=== PATIENT | female | born 1945 | race Hispanic/Latino ===

== ENCOUNTER 2020-08-10 19:31 | Inpatient (IN) | payer MEDICARE ==
[~2020-08-10] VITALS: Ht 149.9 cm; Wt 61.2 kg
[2020-08-10] MEDS ORDERED: SODIUM CHLORIDE 0.9% 1000ML 1,000 ML IV STA (19:35)
[2020-08-10 20:07] LABS: BASOPHILS % 0.2 % (0.0-1.0); HEMATOCRIT 34.4 % (34.2-44.1); HEMOGLOBIN 12.4 g/dL (12.0-16.0); LYMPHOCYTES # (AUTO) 2.5 (1.0-3.2); LYMPHOCYTES % 21.4 % (18.0-39.1); MEAN CORPUSCULAR HEMOGLOBIN 32.9 pg (28-32); MEAN CORPUSCULAR VOLUME 91.2 fL (81-99); MONOCYTES # (AUTO) 1.2 (0.2-0.8); MONOCYTES % 10.3 % (4.4-11.3); NEUTROPHILS # (AUTO) 7.9 (2.1-6.9); NEUTROPHILS % 67.5 % (38.7-80.0); PLATELET COUNT 288 x10e3/uL (140-360); RED BLOOD COUNT 3.77 x10e6/uL (3.6-5.1); RED CELL DISTRIBUTION WIDTH 13.4 % (11.7-14.4)
[2020-08-10] MEDS ORDERED: ONDANSETRON HCL INJ 2MG/ML 2ML 2 MG/ML VIAL IV STA (20:33)
[2020-08-10 20:37] LABS: ALANINE AMINOTRANSFERASE 865 IU/L (0-55); ALBUMIN 3.2 g/dL (3.5-5.0); ALBUMIN/GLOBULIN RATIO 0.7 (0.8-2.0); ALKALINE PHOSPHATASE 67 IU/L (40-150); ANION GAP 16.7 mmol/L (8-16); BLOOD UREA NITROGEN 48 mg/dL (7-26); BUN/CREATININE RATIO 56 (6-25); CALCIUM 8.3 mg/dL (8.4-10.2); CARBON DIOXIDE 18 mmol/L (22-29); CHLORIDE 101 mmol/L (98-107); CREATINE KINASE 26 IU/L (29-168); CREATININE, SERUM 0.85 mg/dL (0.57-1.11); EST GLOMERULAR FILTRATION RATE > 60 ML/MIN (60-); GLUCOSE 102 mg/dL (74-118); LIPASE 37 U/L (8-78); SODIUM 133 mmol/L (136-145)
[2020-08-10 20:43] LABS: POTASSIUM 2.7 mmol/L (3.5-5.1)
[2020-08-10] MEDS ORDERED: POTASSIUM CHLORIDE 10MEQ/100ML 100 ML IV ONE (21:00)
[2020-08-10] MEDS ORDERED: POTASSIUM CHLORIDE 10MEQ EA PO ONE (21:00)
[2020-08-10] MEDS ORDERED: IOPAMIDOL 370 MG/ML 200 ML INFUS..BTL INJ ONE (21:01)
[2020-08-10] MEDS ORDERED: SODIUM CHLORIDE 0.9% 50ML 50 ML ONE (21:01)
[2020-08-10] MEDS: SODIUM CHLORIDE 0.9% 1000ML 1,000 ML IV SCH (23:50)
[2020-08-10] MEDS: METRONIDAZOLE 500MG/NS 100ML 100 ML IV SCH (23:50)
[2020-08-11] VITALS (9 sets, daily range): BP systolic 121–147; BP diastolic 48–66
[2020-08-11] MEDS ORDERED: DILTIAZEM 24HR120 M1 PO (03:02)
[2020-08-11] MEDS ORDERED: GABAPENTIN300 MG PO (03:02)
[2020-08-11] MEDS ORDERED: VITAMIN D32400 UNIT/ (03:02)
[2020-08-11] MEDS ORDERED: CLOPIDOGREL75 MG PO (03:02)
[2020-08-11] MEDS ORDERED: LOSARTAN POTASS25 MG PO (03:02)
[2020-08-11] MEDS ORDERED: CEVIMELINE HCL30 MG PO (03:02)
[2020-08-11] MEDS ORDERED: FAMOTIDINE20 MG PO (03:02)
[2020-08-11] MEDS ORDERED: SOTALOL80 MG PO (03:02)
[2020-08-11] MEDS ORDERED: VITAMIN B-121000 MCG PO (03:02)
[2020-08-11] MEDS: SODIUM CHLORIDE 0.9% 1000ML 1,000 ML IV SCH ×2 (07:17→16:49)
[2020-08-11 07:39] LABS: BASOPHILS % 0.1 % (0.0-1.0); EOSINOPHILS % 0.1 % (0.0-6.0); HEMATOCRIT 30.6 % (34.2-44.1); HEMOGLOBIN 10.7 g/dL (12.0-16.0); LYMPHOCYTES # (AUTO) 2.2 (1.0-3.2); LYMPHOCYTES % 24.2 % (18.0-39.1); MEAN CORPUSCULAR HEMOGLOBIN 32.6 pg (28-32); MEAN CORPUSCULAR VOLUME 93.3 fL (81-99); MONOCYTES # (AUTO) 0.9 (0.2-0.8); MONOCYTES % 9.7 % (4.4-11.3); NEUTROPHILS % 65.1 % (38.7-80.0); PLATELET COUNT 242 x10e3/uL (140-360); RED BLOOD COUNT 3.28 x10e6/uL (3.6-5.1); RED CELL DISTRIBUTION WIDTH 13.7 % (11.7-14.4)
[2020-08-11 08:06] LABS: ALANINE AMINOTRANSFERASE 646 IU/L (0-55); ALBUMIN 2.6 g/dL (3.5-5.0); ALBUMIN/GLOBULIN RATIO 0.7 (0.8-2.0); ALKALINE PHOSPHATASE 55 IU/L (40-150); ANION GAP 13.7 mmol/L (8-16); BLOOD UREA NITROGEN 29 mg/dL (7-26); BUN/CREATININE RATIO 42 (6-25); CALCIUM 7.4 mg/dL (8.4-10.2); CARBON DIOXIDE 18 mmol/L (22-29); CHLORIDE 106 mmol/L (98-107); CREATININE, SERUM 0.69 mg/dL (0.57-1.11); EST GLOMERULAR FILTRATION RATE > 60 ML/MIN (60-); GLUCOSE 69 mg/dL (74-118); SODIUM 135 mmol/L (136-145)
[2020-08-11 08:34] LABS: POTASSIUM 2.7 mmol/L (3.5-5.1)
[2020-08-11] MEDS ORDERED: POTASSIUM CHLORIDE 20 MEQ TAB CR PO STA (08:44)
[2020-08-11] MEDS: METRONIDAZOLE 500MG/NS 100ML 100 ML IV SCH ×3 (09:11→23:42)
[2020-08-11] MEDS: ONDANSETRON HCL INJ 2MG/ML 2ML 2 MG/ML VIAL IV PRN ×3 (10:41→19:12)
[2020-08-11] MEDS ORDERED: POTASSIUM CHLORIDE 20 MEQ TAB CR PO ONE (11:00)
[2020-08-11] MEDS: CIPROFLOXACIN 400 MG/D5W 200ML 200 ML IV SCH ×2 (11:59→17:00)
[2020-08-11] MEDS ORDERED: MAGNESIUM SULFATE 2GM/50ML 50 ML IV ONE (13:45)
[2020-08-11] MEDS ORDERED: ACETAMINOPHEN 325 MG TAB PO PRN (13:45)
[2020-08-11] MEDS: ENOXAPARIN SOD INJ 40 MG/0.4 ML SYR SC SCH (17:00)
[2020-08-11] MEDS ORDERED: PANTOPRAZOLE 40 MG 10ML VIAL IV STA (22:15)
[2020-08-11] MEDS: LEVOFLOXACIN 500MG/D5W 100ML 100 ML IV SCH (22:49)
[2020-08-11] MEDS: METOCLOPRAMIDE HCL 10 MG/2ML VIAL IV ONE ×2 (22:53→23:23)
[2020-08-11] MEDS ORDERED: BISACODYL 5 MG TAB EC PO ONE (23:20)
[2020-08-11] MEDS: BISACODYL 5 MG TAB EC PO ONE ×2 (23:23→23:59)
[2020-08-11] MEDS ORDERED: CITRATE OF MAGNESIA 300ML BOTTLE PO ONE (23:30)
[2020-08-11] MEDS ORDERED: DICYCLOMINE HCL 10 MG CAP PO STA (23:46)
[2020-08-12] VITALS (7 sets, daily range): BP systolic 89–125; BP diastolic 67–76
[2020-08-12] MEDS: METOCLOPRAMIDE HCL 10 MG/2ML VIAL IV SCH ×4 (00:05→16:15)
[2020-08-12] MEDS: SODIUM CHLORIDE 0.9% 1000ML 1,000 ML IV SCH ×2 (01:39→19:27)
[2020-08-12] MEDS: METRONIDAZOLE 500MG/NS 100ML 100 ML IV SCH ×3 (05:42→21:20)
[2020-08-12] MEDS: DICYCLOMINE HCL 10 MG CAP PO SCH ×3 (05:42→21:20)
[2020-08-12 06:26] LABS: BASOPHILS % 0.1 % (0.0-1.0); EOSINOPHILS % 0.1 % (0.0-6.0); HEMATOCRIT 30.9 % (34.2-44.1); HEMOGLOBIN 11.2 g/dL (12.0-16.0); LYMPHOCYTES # (AUTO) 2.8 (1.0-3.2); LYMPHOCYTES % 20.3 % (18.0-39.1); MEAN CORPUSCULAR HGB CONC 36.2 g/dL (31-35); MEAN CORPUSCULAR VOLUME 93.9 fL (81-99); MONOCYTES # (AUTO) 1.4 (0.2-0.8); MONOCYTES % 9.9 % (4.4-11.3); NEUTROPHILS # (AUTO) 9.4 (2.1-6.9); NEUTROPHILS % 69.1 % (38.7-80.0); PLATELET COUNT 219 x10e3/uL (140-360); RED BLOOD COUNT 3.29 x10e6/uL (3.6-5.1); RED CELL DISTRIBUTION WIDTH 14.2 % (11.7-14.4)
[2020-08-12 06:53] LABS: ALANINE AMINOTRANSFERASE 473 IU/L (0-55); ALBUMIN 2.5 g/dL (3.5-5.0); ALKALINE PHOSPHATASE 59 IU/L (40-150); ANION GAP 13.6 mmol/L (8-16); BILIRUBIN,DIRECT 0.5 mg/dL (0.0-0.5); BLOOD UREA NITROGEN 11 mg/dL (7-26); BUN/CREATININE RATIO 20 (6-25); CALCIUM 7.1 mg/dL (8.4-10.2); CARBON DIOXIDE 14 mmol/L (22-29); CHLORIDE 109 mmol/L (98-107); CREATININE, SERUM 0.56 mg/dL (0.57-1.11); EST GLOMERULAR FILTRATION RATE > 60 ML/MIN (60-); GLUCOSE 85 mg/dL (74-118); POTASSIUM 3.6 mmol/L (3.5-5.1); SODIUM 133 mmol/L (136-145)
[2020-08-12] MEDS ORDERED: CITRATE OF MAGNESIA 300ML BOTTLE PO ONE (07:00)
[2020-08-12 07:14] LABS: % IRON SATURATION 69 % (15-50); IRON 84 ug/dL (50-170); TOTAL IRON BINDING CAPACITY 122 ug/dL (261-478); TRANSFERRIN 87 mg/dL (180-382)
[2020-08-12] MEDS: LEVOFLOXACIN 500MG/D5W 100ML 100 ML IV SCH (08:55)
[2020-08-12] MEDS: PANTOPRAZOLE 40 MG 10ML VIAL IV SCH ×2 (08:55→21:20)
[2020-08-12] MEDS: GABAPENTIN 300 MG CAP PO SCH ×2 (14:41→21:20)
[2020-08-12] MEDS: ENOXAPARIN SOD INJ 40 MG/0.4 ML SYR SC SCH (16:14)
[2020-08-12] MEDS: SOTALOL HCL 80 MG TAB PO SCH (16:14)
[2020-08-13] VITALS: BP 86/64
[2020-08-13] MEDS: METOCLOPRAMIDE HCL 10 MG/2ML VIAL IV SCH ×4 (01:12→17:06)
[2020-08-13 04:00] VITALS: BP 95/65
[2020-08-13 05:13] LABS: BASOPHILS % 0.2 % (0.0-1.0); EOSINOPHILS % 0.2 % (0.0-6.0); HEMOGLOBIN 11.3 g/dL (12.0-16.0); LYMPHOCYTES # (AUTO) 5.3 (1.0-3.2); LYMPHOCYTES % 36.7 % (18.0-39.1); MEAN CORPUSCULAR HEMOGLOBIN 35.1 pg (28-32); MEAN CORPUSCULAR HGB CONC 36.5 g/dL (31-35); MEAN CORPUSCULAR VOLUME 96.3 fL (81-99); MONOCYTES # (AUTO) 1.5 (0.2-0.8); MONOCYTES % 10.2 % (4.4-11.3); NEUTROPHILS # (AUTO) 7.4 (2.1-6.9); NEUTROPHILS % 51.7 % (38.7-80.0); PLATELET COUNT 188 x10e3/uL (140-360); RED BLOOD COUNT 3.22 x10e6/uL (3.6-5.1)
[2020-08-13] MEDS: METRONIDAZOLE 500MG/NS 100ML 100 ML IV SCH ×2 (05:33→12:44)
[2020-08-13] MEDS: DICYCLOMINE HCL 10 MG CAP PO SCH ×2 (05:33→12:46)
[2020-08-13 06:04] LABS: ALANINE AMINOTRANSFERASE 340 IU/L (0-55); ALBUMIN 2.4 g/dL (3.5-5.0); ALKALINE PHOSPHATASE 65 IU/L (40-150); ANION GAP 14.6 mmol/L (8-16); BILIRUBIN,DIRECT 0.4 mg/dL (0.0-0.5); BLOOD UREA NITROGEN 11 mg/dL (7-26); BUN/CREATININE RATIO 17 (6-25); CALCIUM 7.4 mg/dL (8.4-10.2); CARBON DIOXIDE 14 mmol/L (22-29); CHLORIDE 110 mmol/L (98-107); CREATININE, SERUM 0.63 mg/dL (0.57-1.11); EST GLOMERULAR FILTRATION RATE > 60 ML/MIN (60-); GLUCOSE 82 mg/dL (74-118); POTASSIUM 3.6 mmol/L (3.5-5.1); SODIUM 135 mmol/L (136-145)
[2020-08-13 07:49] VITALS: BP 96/64
[2020-08-13] MEDS: SODIUM CHLORIDE 0.9% 1000ML 1,000 ML IV SCH (08:47)
[2020-08-13 08:51] VITALS: BP 96/64
[2020-08-13] MEDS: PANTOPRAZOLE 40 MG 10ML VIAL IV SCH (09:00)
[2020-08-13] MEDS: LEVOFLOXACIN 500MG/D5W 100ML 100 ML IV SCH (09:00)
[2020-08-13] MEDS: GABAPENTIN 300 MG CAP PO SCH ×2 (09:00→17:05)
[2020-08-13] MEDS: SOTALOL HCL 80 MG TAB PO SCH ×2 (09:00→17:03)
[2020-08-13 10:54] VITALS: BP 101/76
[2020-08-13] MEDS ORDERED: LEVOFLOXACIN250 MG PO (14:51)
[2020-08-13] MEDS ORDERED: FLAGYL500 MG PO (14:52)
[2020-08-13 16:33] VITALS: BP 107/76
[2020-08-13] MEDS: ENOXAPARIN SOD INJ 40 MG/0.4 ML SYR SC SCH (17:03)
== END 2020-08-13 19:01 | disposition home or self-care (01) | DRG 392 ==
LOC: ER 19:34 → ERHOLD 23:33 → MED/SURG3 08-11 02:09
PROVIDERS: ADMIT Internal Medicine; ATTEND Internal Medicine
DX: K52.9 Noninfective gastroenteritis and colitis, unspecified (principal); E87.1 Hypo-osmolality and hyponatremia; M35.00 Sjogren syndrome, unspecified; E87.6 Hypokalemia; E86.0 Dehydration; I10 Essential (primary) hypertension; Z20.822 Contact with and (suspected) exposure to COVID-19; K75.9 Inflammatory liver disease, unspecified
CPT/HCPCS: 36415; 74177; 80048; 80053; 80076; 81161; 81220; 82270; 82550; 82553; 82607; 82728; 82746; 83540; 83690; 83735; 84466; 84484; 85025; 85045; 87493; 93005; 97139; 99251; 99284; J1650; J1956; J2405; J2765; J3475; J3480; J7030; Q9967; U0002